=== PATIENT | male | born 1985 | race Two or more races ===

== ENCOUNTER 2023-01-09 19:39 | Observation (INO) | payer SELFPAY ==
[2023-01-09] MEDS ORDERED: Sodium Chloride 0.9% 1,000 ML IV ONE ×2 (19:53→20:54)
[2023-01-09] MEDS ORDERED: Sodium Chloride 0.9% 10 ML Syringe FLUSH PRN (19:53)
[2023-01-09] MEDS ORDERED: Ondansetron 4 MG/2 ML SDV IVPUSH ONE (20:12)
[2023-01-09] MEDS ORDERED: Ketorolac 30 MG/ML SDV IVPUSH ONE (20:12)
[2023-01-09 20:20] LABS: BASOPHILS ABSOLUTE AUTO 0.02 K/mm3 (0.01-0.08); BASOPHILS PERCENT AUTO 0.2 % (0.1-1.2); EOSINOPHILS ABSOLUTE AUTO 0.13 K/mm3 (0.04-0.54); EOSINOPHILS PERCENT AUTO 1.1 (0.8-7.0); HEMATOCRIT 50.5 % (40.1-51.0); HEMOGLOBIN 17.7 gm/dl (13.7-17.5); IMMATURE GRAN ABSOLUTE AUTO 0.04 K/mm3 (0.00-0.10); IMMATURE GRAN PERCENT AUTO 0.3 % (<=1.0); LYMPHOCYTES ABSOLUTE AUTO 1.24 K/mm3 (1.32-3.57); LYMPHOCYTES PERCENT AUTO 10.3 % (21.8-53.1); MEAN CORPUSCULAR VOLUME 82.7 fl (79.0-92.2); MEAN PLATELET VOLUME 8.4 fl (9.4-12.3); MONOCYTES PERCENT AUTO 10.8 % (5.3-12.2); NEUTROPHILS ABSOLUTE AUTO 9.32 K/mm3 (1.78-5.38); NEUTROPHILS PERCENT AUTO 77.3 % (34.0-67.9); PLATELET COUNT,PLT 428 K/mm3 (163-337); RED BLOOD CELL COUNT 6.11 M/mm3 (4.63-6.08); WHITE BLOOD CELL COUNT,WBC 12.05 K/mm3 (4.23-9.07)
[2023-01-09 20:42] LABS: A/G RATIO 1.3 (1-2); ALBUMIN 5.4 g/dl (3.4-5.0); BILIRUBIN TOTAL 2.2 mg/dL (0.2-1.0); BUN/CREATININE RATIO 8.4 (14-18); CALCIUM 10.6 mg/dL (8.5-10.1); CREATININE 3.1 mg/dL (0.7-1.3); EST CRCL DRUG DOSING (CG) 34.84 mL/min; MAGNESIUM 2.6 mg/dL (1.8-2.4); PROTEIN TOTAL,TP 9.5 g/dl (6.4-8.2)
[2023-01-09 23:07] LABS: APPEARANCE,URINE CLEAR (Clear); BILIRUBIN,URINE 1+ (Negative); COLOR,URINE YELLOW (Yellow); GLUCOSE,URINE NEGATIVE (Negative); KETONES,URINE 1+ (Negative); LEUKOCYTE ESTERASE,URINE NEGATIVE (Negative); NITRITE,URINE NEGATIVE (Negative); OCCULT BLOOD,URINE NEGATIVE (Negative); PH,URINE 5.5 (5.0-8.0); PROTEIN,URINE 2+ (Negative); UROBILINOGEN,URINE 0.2 (0.2-1.0)
[2023-01-09 23:29] LABS: BARBITURATE SCREEN,URINE NEGATIVE (CUTOFF=200); BENZODIAZEPINES SCREEN,URINE NEGATIVE (CUTOFF=150); BUPRENORPHINE SCREEN,URINE NEGATIVE (CUTOFF=10); METHADONE SCREEN, URINE NEGATIVE (CUT0FF=200); METHAMPHETAMINES SCREEN, URINE PRESUMPTIVE POSITIVE (CUTOFF=500); OXYCODONE SCREEN,URINE NEGATIVE (CUT0FF=100); PROPOXYPHENE SCREEN,URINE NEGATIVE (CUTOFF=300); THC SCREEN,URINE 20 NG/ML NEGATIVE (CUTOFF=50)
[2023-01-09 23:31] LABS: AMPHETAMINES SCREEN, URINE PRESUMPTIVE POSITIVE (CUTOFF=500)
[2023-01-09 23:51] LABS: RBC,URINE 0-5 /hpf (0-5); RENAL EPITHELIAL CELLS,URINE 0-5 /hpf (0-5); SQUAMOUS EPITHELIAL CELLS,UR 0-5 /hpf (0-5); WBC,URINE 0-5 /hpf (0-5)
[2023-01-09 23:52] LABS: BACTERIA,URINE MODERATE /hpf (FEW); MUCUS,URINE MANY /hpf (FEW)
[2023-01-10] MEDS ORDERED: Ondansetron 4 MG/2 ML SDV IVPUSH PRN (00:07)
[2023-01-10] MEDS ORDERED: Naloxone 0.4 MG/ML SDV IVPUSH PRN (00:08)
[2023-01-10] MEDS ORDERED: fentaNYL 100 MCG/2 ML SDV IVPUSH PRN (00:08)
[2023-01-10] MEDS ORDERED: Acetaminophen 325 MG Tab PO PRN (00:08)
[2023-01-10] MEDS: Sodium Chloride 0.9% 1,000 ML IV SCH ×2 (00:37→07:51)
[2023-01-10 01:59] LABS: LACTIC ACID 0.7 mmol/L (0.4-2.0)
[2023-01-10] MEDS ORDERED: cefTRIAXone 2 GM in Sodium Chloride 0.9% 100 ML IV SCH (02:00)
[2023-01-10 05:50] LABS: A/G RATIO 1.2 (1-2); ALBUMIN 3.7 g/dl (3.4-5.0); ANION GAP 10.4 (5-15); BILIRUBIN TOTAL 0.9 mg/dL (0.2-1.0); BUN/CREATININE RATIO 9.4 (14-18); EST CRCL DRUG DOSING (CG) 58.06 mL/min; MAGNESIUM 2.3 mg/dL (1.8-2.4); POTASSIUM,K 3.4 mEq/L (3.5-5.1); PROTEIN TOTAL,TP 6.9 g/dl (6.4-8.2)
[2023-01-10 06:07] LABS: CALCIUM 8.4 mg/dL (8.5-10.1); CREATININE 1.8 mg/dL (0.7-1.3)
[2023-01-10 08:34] LABS: BASOPHILS ABSOLUTE AUTO 0.02 K/mm3 (0.01-0.08); BASOPHILS PERCENT AUTO 0.4 % (0.1-1.2); EOSINOPHILS ABSOLUTE AUTO 0.59 K/mm3 (0.04-0.54); EOSINOPHILS PERCENT AUTO 12.8 (0.8-7.0); HEMATOCRIT 41.7 % (40.1-51.0); HEMOGLOBIN 14.5 gm/dl (13.7-17.5); IMMATURE GRAN ABSOLUTE AUTO 0.01 K/mm3 (0.00-0.10); IMMATURE GRAN PERCENT AUTO 0.2 % (<=1.0); LYMPHOCYTES ABSOLUTE AUTO 0.71 K/mm3 (1.32-3.57); LYMPHOCYTES PERCENT AUTO 15.4 % (21.8-53.1); MEAN CORPUSCULAR HEMOGLOBIN 29.4 pg (25.7-32.2); MEAN CORPUSCULAR HGB CONC 34.8 g/dl (32.2-35.5); MEAN CORPUSCULAR VOLUME 84.6 fl (79.0-92.2); MEAN PLATELET VOLUME 8.4 fl (9.4-12.3); MONOCYTES ABSOLUTE AUTO 0.76 K/mm3 (0.30-0.82); MONOCYTES PERCENT AUTO 16.5 % (5.3-12.2); NEUTROPHILS ABSOLUTE AUTO 2.51 K/mm3 (1.78-5.38); NEUTROPHILS PERCENT AUTO 54.7 % (34.0-67.9); PLATELET COUNT,PLT 322 K/mm3 (163-337); RED BLOOD CELL COUNT 4.93 M/mm3 (4.63-6.08)
[2023-01-10 14:35] LABS: ANION GAP 9.7 (5-15); BUN/CREATININE RATIO 15.4 (14-18); CALCIUM 8.7 mg/dL (8.5-10.1); CREATININE 1.3 mg/dL (0.7-1.3); EST CRCL DRUG DOSING (CG) 80.38 mL/min; POTASSIUM,K 3.7 mEq/L (3.5-5.1)
== END 2023-01-10 15:38 | disposition home or self-care (01) ==
LOC: JD.ED 19:39 → EDBD 22:51 → JD.MS 22:51
PROVIDERS: ADMIT Internal Medicine; ATTEND Internal Medicine
DX: N17.9 Acute kidney failure, unspecified (principal); E86.0 Dehydration; F10.10 Alcohol abuse, uncomplicated; F15.10 Other stimulant abuse, uncomplicated; K21.9 Gastro-esophageal reflux disease without esophagitis; Z79.899 Other long term (current) drug therapy
CPT/HCPCS: 36415; 74176; 80048; 80053; 80306; 81001; 83605; 83735; 85025; 87040; 96361; 96374; 96375; 99285; A9270; G0378; J0696; J2405; J3490; J7030